=== PATIENT | male | born 1965 | race African-American/Black ===

== ENCOUNTER 2017-09-03 13:27 | Emergency (ER) | payer OTHER ==
[~2017-09-03] VITALS: Ht 188 cm; Wt 116.0 kg
[2017-09-03 15:20] VITALS: BP 134/92
== END 2017-09-03 15:22 | disposition home or self-care (01) ==
LOC: ED 15:00
DX: T58.11XA Toxic effect of carbon monoxide from utility gas, accidental (unintentional), initial encounter (principal); Y92.89 Other specified places as the place of occurrence of the external cause
CPT/HCPCS: 36415; 82375; 99283